=== PATIENT | female | born 1955 | race American Indian/Alaskan Native ===

== ENCOUNTER 2019-04-08 06:08 | Day surgery (SDC) | payer MEDICARE, OTHER ==
[2019-04-08] MEDS ORDERED: NACL 0.9% 1000 ML 1,000 ML IV SCH (07:00)
--- NOTE | 2019-04-08 07:16 | Anesthesia Consultation ---
Anesthesia Consult and Med Hx Date of service: 04/08/19 - Pre-Operative Health Status Proposed Anesthetic Plan: MAC
--- NOTE | 2019-04-08 07:16 | Anesthesia Day of Surgery ---
Anesthesia Day of Surgery - Day of Surgery Patient Examined: Yes Patient H&P Reviewed: Yes Patient is NPO: Yes
[2019-04-08] MEDS ORDERED: KETALAR ONE (07:53)
[2019-04-08] MEDS ORDERED: DIPRIVAN 10 MG/ML IV ONE ×2 (07:58→07:59)
[2019-04-08] MEDS ORDERED: XYLOCAINE MPF 2% ONE (08:30)
[2019-04-08] MEDS ORDERED: NACL 0.9% 1000 ML 1,000 ML ONE (08:36)
[2019-04-08 08:44] VITALS: BP 145/74
--- NOTE | 2019-04-08 09:22 | Operative Report ---
SURGEON: Rajinder Payne MD ORDNANCE KEEPER: Leland Cloud MD PREOPERATIVE DIAGNOSIS: Morbid obesity. POSTOPERATIVE DIAGNOSES: 1. Small hiatal hernia. 2. Gastritis. PROCEDURE: EGD with biopsies. ANESTHESIA: MAC. COMPLICATIONS: None. BLEEDING: Minimal. SPECIMENS: Antral biopsies. INDICATIONS: The patient is a 63-year-old female with a history of morbid obesity. She is here for a preoperative EGD in preparation for her weight loss surgery. DESCRIPTION OF PROCEDURE: Bite block was placed and a timeout was called. A standard adult gastroscope was inserted into the oropharynx, down the esophagus, into the stomach. The pylorus was easily intubated. She is noted to have evidence of gastritis in the antrum of the stomach. On retroflexion view, she was noted to have a very small, less than 1 cm hiatal hernia. Antral biopsies were taken for H. pylori with no other abnormalities. The gastroscope was removed. The patient tolerated the procedure well with no immediate complications and was transferred to the PACU in stable condition. JOB# [id number] SANDRA/PAUL
== END 2019-04-08 06:09 | disposition home or self-care (01) ==
LOC: GIO 06:08
PROVIDERS: ATTEND Specialist
DX: K29.50 Unspecified chronic gastritis without bleeding (principal); K44.9 Diaphragmatic hernia without obstruction or gangrene; E66.01 Morbid (severe) obesity due to excess calories; K30 Functional dyspepsia; I10 Essential (primary) hypertension; K21.9 Gastro-esophageal reflux disease without esophagitis; Z79.899 Other long term (current) drug therapy; Z88.8 Allergy status to other drugs, medicaments and biological substances
CPT/HCPCS: 43239; 82962; 88305; 88342; J2704; J7030

== ENCOUNTER 2019-04-15 05:46 | Inpatient (IN) | payer MEDICARE, OTHER ==
[~2019-04-15 05:46] MED LIST: ANCEF/STERILE WATER 2 GM/20 ML 2 GM/20 ML SYRINGE IV NR; APRESOLINE IV PRN; FLAGYL 500 MG/100 ML 500 MG/100 ML BAG IV NR; LOVENOX SUB-Q NR; NORCO PO PRN; TRANSDERM-SCOP TD SCH; ZOFRAN IV PRN
[2019-04-15] MEDS ORDERED: FLAGYL 500 MG/100 ML 500 MG/100 ML BAG IV NR (06:00)
[2019-04-15] MEDS ORDERED: ANCEF/STERILE WATER 2 GM/20 ML 2 GM/20 ML SYRINGE IV NR (06:00)
[2019-04-15] MEDS ORDERED: NACL BACTERIOSTATIC INFILTRATI ONE (06:44)
[2019-04-15] MEDS ORDERED: LOVENOX SUB-Q ONE ×2 (07:03→07:23)
[2019-04-15] MEDS: LACTATED RINGERS 1,000 ML IV SCH ×3 (07:06→20:45)
--- NOTE | 2019-04-15 07:20 | Anesthesia Day of Surgery ---
Anesthesia Day of Surgery - Day of Surgery Patient Examined: Yes Patient H&P Reviewed: Yes Patient is NPO: Yes Beta Blockers: Yes Cardiac Clearance: Yes Pulmonary Clearance: Yes
--- NOTE | 2019-04-15 07:22 | Anesthesia Consultation ---
Anesthesia Consult and Med Hx Date of service: 04/15/19 - Airway Anesthetic Teeth Evaluation: Good, Crowns, Bridges ROM Head & Neck: Adequate Mental/Hyoid Distance: Adequate Mallampati Class: Class II Intubation Access Assessment: Good - Pre-Operative Health Status ASA Pre-Surgery Classification: ASA3 Proposed Anesthetic Plan: General - Pulmonary Hx Sleep Apnea: Yes (CPAP) - Cardiovascular System Hx Hypertension: Yes (Since ) Hx Coronary Artery Disease: No (Negative cardiac w/u) - Central Nervous System Hx Seizures: Yes (Single episode) Hx Psychiatric Problems: No - Gastrointestinal Hx Gastroesophageal Reflux Disease: Yes - Endocrine Hx Non-Insulin Dependent Diabetes: Yes - Hematic Hx Sickle Cell Disease: No - Other Systems Hx Cancer: No
[2019-04-15] MEDS ORDERED: DILAUDID IV PRN (07:23)
[2019-04-15] MEDS ORDERED: SUBLIMAZE IV PRN (07:23)
[2019-04-15] MEDS ORDERED: ZOFRAN IV PRN (07:23)
[2019-04-15] MEDS ORDERED: MARCAINE-EPI 0.5%-1:200,000 INFILTRATI ONE ×2 (07:25→09:12)
[2019-04-15] MEDS ORDERED: XYLOCAINE 1% 20 mL ONE (07:25)
[2019-04-15] MEDS ORDERED: DIPRIVAN 10 MG/ML IV ONE (07:33)
[2019-04-15] MEDS ORDERED: SUBLIMAZE ONE ×2 (07:33→08:39)
[2019-04-15] MEDS ORDERED: LOVENOX SUB-Q SCH (08:00)
[2019-04-15] MEDS ORDERED: PHENYLEPHRINE/NS Syringe 1,000 MCG/10 ML IV ONE (08:49)
[2019-04-15] MEDS ORDERED: XYLOCAINE MPF 2% ONE (08:49)
[2019-04-15] MEDS ORDERED: DECADRON ONE (08:49)
[2019-04-15] MEDS ORDERED: ROBINUL ONE (08:49)
[2019-04-15] MEDS ORDERED: ZOFRAN ONE (08:49)
[2019-04-15] MEDS ORDERED: ZEMURON IV ONE (08:49)
[2019-04-15] MEDS ORDERED: MARCAINE 0.5% INFILTRATI ONE (08:59)
[2019-04-15] MEDS ORDERED: MARCAINE-EPI/PF 0.5%-1:200,000 INFILTRATI ONE (09:00)
[2019-04-15] MEDS ORDERED: BLOXIVERZ ONE (09:00)
[2019-04-15] MEDS ORDERED: XYLOCAINE 1% 20 mL INFILTRATI ONE (09:29)
[2019-04-15] MEDS ORDERED: NACL 0.9% IR ONE (09:29)
[2019-04-15] MEDS ORDERED: HumuLIN R IV ONE (09:43)
[2019-04-15] MEDS: MYLICON PO PRN ×2 (10:16→20:51)
--- NOTE | 2019-04-15 13:09 | Post Anesthesia Evaluation ---
- Post Anesthesia Evaluation Patient Participated: Yes Airway Patent: Yes Stable Respiratory Function: Yes Nausea/Vomiting: No Temp > 96.8F: Yes Pain Manageable: Yes Adequeate Hydration: Yes Anesthesia Complications: No Block Receding Appropriately: Not Applicable Patient on Ventilator: No
--- NOTE | 2019-04-15 13:30 | Operative Report ---
SURGEON: Rajinder Payne MD CHIEF POWER DISPATCHER: Leland Cloud MD, Fellow; Neil Ring MD, [facility] PREOPERATIVE DIAGNOSIS: Morbid obesity. POSTOPERATIVE DIAGNOSIS: Morbid obesity. OPERATION: 1. Laparoscopic lysis of adhesions. 2. Laparoscopic sleeve gastrectomy. 3. Laparoscopic hiatal hernia repair. ANESTHESIA: General endotracheal anesthesia. COMPLICATIONS: None. BLEEDING: Less than 10 mL. SPECIMENS: Gastric remnant. INDICATIONS: The patient is a 63-year-old female with a history of morbid obesity. She has undergone a preoperative bariatric workup and presents for her operation. She was originally planned for a gastric bypass but after discussion with the patient and her , the patient has elected to proceed with a sleeve gastrectomy instead. The risks, complications and alternatives had been explained to the patient. Informed consent was obtained. DESCRIPTION OF PROCEDURE: The patient was brought to the operating suite where she was placed in the supine position and underwent general endotracheal intubation. She received preoperative antibiotics and DVT prophylaxis. A timeout was called to ensure proper patient, indication, operation, after she was prepped and draped in the usual sterile fashion. Local analgesia was injected into the left upper quadrant and a small stab incision was made with insertion of a Veress needle. Insufflation pressures were achieved to 15 mmHg. Intraabdominal access was gained via the right lateral quadrant with a 5 mm optical trocar. On intraabdominal view, she had dense adhesions; therefore, we placed another 5 mm port under optical view to the left lateral quadrant. On inspection from the left lateral space, she had midline adhesions and right upper quadrant adhesions from her prior cholecystectomy. A 15 mm trocar was placed at the umbilicus and another 5 mm trocar was placed to the left of the midclavicular line. The adhesions to the anterior abdominal wall were taken down with the LigaSure device, making sure to carefully inspect for any bowel that was nearby. We freed up the adhesions which took about 15 minutes to expose the right lateral port. These adhesions were taken down up to the falciform ligament. After this, a subxiphoid port was placed and then the patient was repositioned in steep reverse Trendelenburg. A liver retractor was inserted. A hiatal dissection was then performed revealing a small hiatal hernia. Mediastinal dissection was performed to ensure at least 2 cm of esophagus into the abdominal cavity. She had a large gastroesophageal fat pad that was removed. The angle of His was dissected free. The greater curvature of the stomach was then from the gastrocolic ligament using the LigaSure device. This was continued to fully mobilize the stomach to include the short gastrics as well as posteriorly and a 6 cm antegrade from the duodenum. She also had minor adhesions from the pylorus up to the liver that were taken down. After this, Anesthesia placed a 40-Bel[place]ian bougie for calibration and a sleeve gastrectomy was performed utilizing several staple loads. Insufflation pressures were decreased and the staple line was cauterized after each fire. An anterior cruroplasty was done with 0 Surgidac suture to reapproximate the hiatus. The gastric remnant was removed from the umbilical port site and then the fascia was closed with #1 PDS in a [id number] fashion. Additional local was injected into all the wound sites. The incisions were closed with 4-0 Monocryl. Sterile bandages were placed over top. The patient tolerated the procedure with no immediate complications and was transferred to the PACU in stable condition. FINDINGS: Small hiatal hernia, dense adhesions from her prior abdominal operations. [facility]# [id number] SANDRA/PAUL RODRIGUEZ
[2019-04-15] MEDS: REGLAN IV PRN ×2 (14:13→20:56)
[2019-04-15] MEDS: MORPHINE IV PRN ×2 (14:13→20:40)
[2019-04-15] MEDS: TORADOL IV SCH ×2 (16:55→19:00)
[2019-04-16] MEDS: LACTATED RINGERS 1,000 ML IV SCH (02:56)
--- NOTE | 2019-04-16 04:53 | Discharge Summary ---
Providers - Providers Date of Admission: 04/15/19 05:46 Date of discharge: 04/16/19 Attending physician: MERVIN PAYNE Hospitalization Reason for admission: postop care Condition: Good Procedures: 04/15/19: Laparoscopic sleeve gastrectomy, MADELAINE, HHR Hospital course: 63F admitted after her operation for postop care. She was originally planned for a gastric bypass but after discussion with the patient and her , opted to proceed with a sleeve gastrectomy instead. See op note for further detail. She did well overnight with no major issues. Patient ambulated, tolerated a CLD, and pain was controlled. She was dc home POD1. Disposition: DC-01 TO HOME OR SELFCARE Core Measure Documentation - Palliative Care Palliative Care/ Comfort Measures: Not Applicable - Core Measures Any of the following diagnoses?: none - VTE Discharge Requirements Deep Vein Thrombosis/Pulmonary Embolism Present on Admission: No - Acute CT Discharge Requirements Aspirin at discharge: No Reason for no aspirin on DC: Surgical contraindication - Heart Failure Discharge Requirements FORTUNATO/ARB for LVSD if EF <40%: Not Applicable - Stroke Discharge Requirements Statin for LDL = or >70 mg/dl on DC: Not Applicable Exam - Physical Exam Narrative exam: Gen: AAO, NAD HEENT: Anicteric. No lymphadenopathy. Heart: RRR, no murmurs Lungs: Clear, good respiratory effort Abd: Soft, NT, ND. Bandages c/d/i. Ext: No LE Edema - Constitutional Vitals: Temp Pulse Resp BP Pulse Ox 98.3 F 98 H 18 124/67 89 04/15/19 23:46 04/15/19 23:46 04/15/19 23:46 04/15/19 23:46 04/16/19 00:09 Plan Activity: advance as tolerated Diet: clear liquids Wound: keep clean and dry, change dressing, per your surgeon's advice Special Instructions: no heavy lifting Additional Instructions: Fu Dr Payne as already scheduled Follow up with: MATTI LINO [Other] - 7 Days
[2019-04-16] MEDS: TORADOL IV SCH ×2 (05:25→05:29)
[2019-04-16 07:49] VITALS: BP 137/67
[2019-04-16 08:10] LABS: Basophils % (Auto) 0.4 % (0.0-1.8); Eosinophils % (Auto) 0.4 % (0.0-4.3); Hematocrit 31.4 % (30.3-42.9); Hemoglobin 10.3 gm/dl (10.1-14.3); Lymphocytes # (Auto) 1.8 K/mm3 (1.2-5.4); Lymphocytes % (Auto) 25.8 % (13.4-35.0); Mean Corpuscular HGB Conc 33 % (30-34); Mean Corpuscular Volume 78 fl (79-97); Monocytes # (Auto) 0.6 K/mm3 (0.0-0.8); Monocytes % (Auto) 7.7 % (0.0-7.3); Platelet Count 176 K/mm3 (140-440); Red Blood Count 4.01 M/mm3 (3.65-5.03); Red Cell Distribution Width 17.3 % (13.2-15.2)
[2019-04-16 09:31] LABS: Alanine Aminotransferase 29 units/L (7-56); Albumin 3.4 g/dL (3.9-5); BUN/Creatinine Ratio 20; Blood Urea Nitrogen 12 mg/dL (7-17); Calcium 8.5 mg/dL (8.4-10.2); Hemolysis Index 5
[2019-04-16] MEDS ORDERED: LOVENOX SUB-Q SCH (10:00)
== END 2019-04-16 09:17 | disposition home or self-care (01) | DRG 621 ==
LOC: 3A 05:46 → 3B-SURG 10:12
PROVIDERS: ADMIT Specialist; ATTEND Specialist
PROC: 0DB64Z3 Excision of Stomach, Percutaneous Endoscopic Approach, Vertical (ICD-10-PCS; principal; 2019-04-15)
PROC: 0DNW4ZZ Release Peritoneum, Percutaneous Endoscopic Approach (ICD-10-PCS; 2019-04-15)
PROC: 0BQT4ZZ Repair Diaphragm, Percutaneous Endoscopic Approach (ICD-10-PCS; 2019-04-15)
DX: E66.01 Morbid (severe) obesity due to excess calories (principal); G47.30 Sleep apnea, unspecified; I10 Essential (primary) hypertension; K21.9 Gastro-esophageal reflux disease without esophagitis; K66.0 Peritoneal adhesions (postprocedural) (postinfection); K44.9 Diaphragmatic hernia without obstruction or gangrene; E11.9 Type 2 diabetes mellitus without complications; M19.90 Unspecified osteoarthritis, unspecified site; Z90.49 Acquired absence of other specified parts of digestive tract; Z98.51 Tubal ligation status; Z88.1 Allergy status to other antibiotic agents
CPT/HCPCS: 36415; 80053; 82962; 85025; 87116; 88307; 88341; 88342; G0378; J0690; J1100; J1170; J1650; J1815; J1885; J2270; J2370; J2405; J2704; J2710; J2765; J3010; J7120